=== PATIENT | female | born 1945 | race African-American/Black ===

== ENCOUNTER 2019-08-23 16:38 | Inpatient (IN) | payer MEDICARE, OTHER ==
[~2019-08-23] VITALS: Ht 167.6 cm; Wt 104.6 kg
[~2019-08-23 16:38] MED LIST: ALBU8.5H8 IH; AMLO5TAB9 PO; ASPI-1111 PO; BENA10TA77 PO; FAMO20 PO; FURO40 PO; LEVE500T53 PO; MAGOX PO; OLAN5TAB2 PO; PANT40TA25 PO; TOLT2TAB2 PO
[2019-08-23] MEDS ORDERED: IPRATROPIUM BROMIDE 0.5 MG/2.5 ML NEB SOLUTION NEB ONE ×3 (16:56→17:00)
[2019-08-23] MEDS ORDERED: 0.9% SODIUM CHLORIDE 15 ML NEB SOLUTION NEB ONE (16:56)
[2019-08-23] MEDS ORDERED: ALBUTEROL SULFATE 5 MG/ML 20 ML NEB SOLN [BULK] NEB ONE ×2 (16:56→17:02)
[2019-08-23] MEDS ORDERED: 0.9% SODIUM CHLORIDE 10 ML SYRINGE IVP PRN ×2 (17:00→20:45)
[2019-08-23] MEDS ORDERED: FUROSEMIDE 40 MG/4 ML VIAL IVP ONE (17:00)
[2019-08-23] MEDS ORDERED: MethylPREDNISolone SOD SUCC 125 MG/2 ML VIAL IVP ONE (17:00)
[2019-08-23 17:35] LABS: BASOPHILS % (AUTO) 0.7 % (0.0-2.0); EOSINOPHILS % (AUTO) 0.7 % (1.0-6.0); HEMATOCRIT 37.8 % (36-46); HEMOGLOBIN 11.6 g/dL (12.0-16.0); LYMPHOCYTES # (AUTO) 1.9 K/uL (1.0-4.8); LYMPHOCYTES % (AUTO) 20.4 % (22.0-44.0); MEAN CORPUSCULAR HEMOGLOBIN 25.6 pg (26.0-34.0); MEAN CORPUSCULAR HGB CONC 30.6 G/dL (31.0-37.0); MEAN CORPUSCULAR VOLUME 83 fL (80-100); MONOCYTES # (AUTO) 1.1 K/uL (0.1-1.0); MONOCYTES % (AUTO) 11.2 % (2.0-9.0); NEUTROPHILS # (AUTO) 6.3 K/uL (1.8-7.7); PLATELET COUNT (AUTO) 287 K/uL (150-450); RED BLOOD CELL COUNT(AUTO) 4.53 MIL/uL (4.00-5.20); RED CELL DISTRIBUTION WIDTH 19.4 % (11.5-14.5)
[2019-08-23 17:40] LABS: INR 1.3 (0.9-1.1); PROTHROMBIN TIME 13.1 SEC (9.4-11.6)
[2019-08-23 17:41] LABS: CREATININE 1.72 mg/dL (0.60-1.30); POTASSIUM 3.7 mmol/L (3.5-5.1)
[2019-08-23 17:47] LABS: LACTIC ACID 1.7 mmol/L (0.4-2.0)
[2019-08-23 17:50] LABS: PLATELET MORPHOLOGY COMMENT LARGE PLTS PRESENT
[2019-08-23 18:06] LABS: ALBUMIN 2.7 g/dL (3.4-5.0); BILIRUBIN,TOTAL 0.4 mg/dL (0.1-1.0); TOTAL PROTEIN, SERUM 7.4 g/dL (6.4-8.2)
[2019-08-23 18:37] LABS: ABG A-A DIFF O2 174.5 mmHg (10-20.0); ABG BASE EXCESS 8.8 mmol/L (-2.0-3.0); ABG CARBOXYHEMOGLOBIN 1.1 % (0.0-1.5); ABG HCO3 29.7 mmol/L (22.0-26.0); ABG METHEMOGLOBIN 0.3 % (0.0-1.5); ABG OXYGEN CONTENT 16.4 mL/dL (15.0-23.0); ABG OXYHEMOGLOBIN 94.7 % (94.0-100.0); ABG TOTAL HEMOGLOBIN 12.2 G/dL (12.0-18.0); PO2, ARTERIAL BG 91.3 mmHg (75.0-83.0); SOURCE, BLOOD GAS ARTERIAL; TEMPERATURE, FAHRENHEIT, BG 97.5 FAHREN (96.0-98.6)
[2019-08-23 18:39] LABS: ABG PCO2 95 mmHg (35-45); ABG PH 7.206 (7.35-7.450); O2 DEVICE,BLOOD GAS AEROSOL (ROOM AIR); SITE, BLOOD GAS RT RADIAL
[2019-08-23 18:41] LABS: INFLUENZA TYPE A NEGATIVE FOR TYPE A (NEGATIVE); INFLUENZA TYPE B NEGATIVE FOR TYPE B (NEGATIVE)
[2019-08-23] MEDS ORDERED: RAPID SEQUENCE KIT [RSI] 1 EACH KIT ONE (19:22)
[2019-08-23] MEDS ORDERED: SUCCINYLCHOLINE CHLORIDE 20 MG/ML 10 ML VIAL ONE (19:22)
[2019-08-23] MEDS ORDERED: ETOMIDATE 2 MG/ML 10 ML VIAL IVP ONE (19:30)
[2019-08-23] MEDS ORDERED: SUCCINYLCHOLINE CHLORIDE 20 MG/ML 10 ML VIAL IVP ONE (19:30)
[2019-08-23] MEDS: PROPOFOL 1000 MG/ISO-OSM 100 ML IV PRN ×2 (19:47→23:59)
[2019-08-23] MEDS ORDERED: NOREPINEPHRINE 4 MG/D5%-WATER 250 ML IV PRN ×2 (20:25→22:30)
[2019-08-23 20:38] LABS: APPEARANCE,URINE CLOUDY (CLEAR); GLUCOSE, URINE (UA) NEGATIVE (NEGATIVE); KETONES,URINE NEGATIVE (NEGATIVE); LEUKOCYTE ESTERASE ,URINE NEGATIVE (NEGATIVE); NITRATE,URINE NEGATIVE (NEGATIVE); OCCULT BLOOD,URINE NEGATIVE (NEGATIVE); PROTEIN,URINE TRACE (NEGATIVE)
[2019-08-23] MEDS ORDERED: ACETAMINOPHEN 325 MG TABLET PO PRN (20:45)
[2019-08-23] MEDS ORDERED: LEVOFLOXACIN 500 MG/D5% WATER 100 ML IV ONE (20:45)
[2019-08-23 20:55] LABS: BILIRUBIN,URINE PRELIM. POSITIVE (NEGATIVE)
[2019-08-23 21:00] VITALS: BP 123/63
[2019-08-23 21:10] LABS: BACTERIA,URINE Few /HPF (None Seen); RBC,URINE None Seen /HPF (0-2); SQUAMOUS EPITHELIAL CELL,UR Few /LPF (None Seen); WBC,URINE 0-2 /HPF (0-5)
[2019-08-23 21:25] LABS: ABG A-A DIFF O2 202.1 mmHg (10-20.0); ABG BASE EXCESS -0.4 mmol/L (-2.0-3.0); ABG CARBOXYHEMOGLOBIN 1.5 % (0.0-1.5); ABG METHEMOGLOBIN 0.3 % (0.0-1.5); ABG OXYGEN CONTENT 16.2 mL/dL (15.0-23.0); ABG OXYGEN SATURATION 98.6 % (95.0-98.0); ABG OXYHEMOGLOBIN 96.8 % (94.0-100.0); ABG PCO2 44 mmHg (35-45); ABG PH 7.373 (7.35-7.450); ABG TOTAL HEMOGLOBIN 11.8 G/dL (12.0-18.0); PO2, ARTERIAL BG 107.1 mmHg (75.0-83.0); SOURCE, BLOOD GAS ARTERIAL
[2019-08-23 21:27] LABS: O2 DEVICE,BLOOD GAS VENTILATOR (ROOM AIR); SITE, BLOOD GAS RT RADIAL
[2019-08-23 21:28] LABS: PEEP,BG 5 cm H2O; SPONTANEOUS VT, BG 465 ml; VT, ABG 500 ml
[2019-08-23] MEDS ORDERED: SODIUM CHLORIDE 0.9% 250 ML IV ONE (21:30)
[2019-08-23] MEDS ORDERED: HydrALAZINE HCL 20 MG/ML VIAL IVP PRN (22:30)
[2019-08-24] VITALS: BP 128/56
[2019-08-24] MEDS: MethylPREDNISolone SOD SUCC 125 MG/2 ML VIAL IVP SCH ×4 (01:10→23:15)
[2019-08-24] MEDS: LevETIRAcetam 500 MG TABLET PO SCH ×3 (01:10→20:52)
[2019-08-24] MEDS ORDERED: 0.9% SODIUM CHLORIDE 10 ML SYRINGE IVP PRN (01:15)
[2019-08-24] MEDS ORDERED: OxyCODONE HCL/ACETAMINOPHEN 5-325 MG TABLET PO PRN ×2 (01:15)
[2019-08-24] MEDS ORDERED: MAGNESIUM HYDROXIDE SUSPENSION 30 ML UDCUP PO PRN (01:15)
[2019-08-24] MEDS ORDERED: ACETAMINOPHEN 325 MG TABLET PO PRN (01:15)
[2019-08-24] MEDS ORDERED: ONDANSETRON HCL 4 MG/2 ML VIAL IVP PRN (01:15)
[2019-08-24] MEDS ORDERED: ALBUTEROL SULFATE 2.5 MG/0.5 ML NEB SOLUTION NEB ONE (01:58)
[2019-08-24] MEDS ORDERED: ALBUTEROL SULFATE 2.5 MG/0.5 ML NEB SOLUTION NEB SCH (02:00)
[2019-08-24] MEDS ORDERED: IPRATROPIUM BROMIDE 0.5 MG/2.5 ML NEB SOLUTION NEB SCH (02:00)
[2019-08-24] MEDS: ALBUTEROL SULFATE 2.5 MG/0.5 ML NEB SOLUTION NEB SCH ×4 (02:08→20:08)
[2019-08-24] MEDS: IPRATROPIUM BROMIDE 0.5 MG/2.5 ML NEB SOLUTION NEB SCH ×4 (02:08→20:08)
[2019-08-24] MEDS: DOCUSATE SODIUM 100 MG CAPSULE PO SCH ×3 (02:27→20:52)
[2019-08-24 04:00] VITALS: BP 116/56
[2019-08-24 05:12] LABS: BASOPHILS % (AUTO) 0.6 % (0.0-2.0); EOSINOPHILS % (AUTO) 0 % (1.0-6.0); HEMATOCRIT 34.6 % (36-46); HEMOGLOBIN 10.9 g/dL (12.0-16.0); LYMPHOCYTES # (AUTO) 1.1 K/uL (1.0-4.8); LYMPHOCYTES % (AUTO) 12.2 % (22.0-44.0); MEAN CORPUSCULAR HEMOGLOBIN 25.9 pg (26.0-34.0); MEAN CORPUSCULAR HGB CONC 31.5 G/dL (31.0-37.0); MEAN CORPUSCULAR VOLUME 82 fL (80-100); MONOCYTES # (AUTO) 0.1 K/uL (0.1-1.0); MONOCYTES % (AUTO) 0.9 % (2.0-9.0); PLATELET COUNT (AUTO) 278 K/uL (150-450); RED BLOOD CELL COUNT(AUTO) 4.21 MIL/uL (4.00-5.20); RED CELL DISTRIBUTION WIDTH 18.8 % (11.5-14.5)
[2019-08-24 05:14] LABS: NEUTROPHILS % (AUTO) 86.3 % (40.0-70.0)
[2019-08-24 05:21] LABS: ALBUMIN 2.3 g/dL (3.4-5.0); BILIRUBIN,TOTAL 0.3 mg/dL (0.1-1.0); CREATININE 1.56 mg/dL (0.60-1.30); TOTAL PROTEIN, SERUM 6.7 g/dL (6.4-8.2)
[2019-08-24] MEDS: PROPOFOL 1000 MG/ISO-OSM 100 ML IV PRN ×4 (05:21→19:48)
[2019-08-24 05:31] LABS: PLATELET MORPHOLOGY COMMENT GIANT PLTS PRESENT
[2019-08-24 08:00] VITALS: BP 151/73
[2019-08-24 08:01] LABS: ABG BASE EXCESS 10.4 mmol/L (-2.0-3.0); ABG HCO3 33.2 mmol/L (22.0-26.0); ABG METHEMOGLOBIN 0.3 % (0.0-1.5); ABG OXYGEN CONTENT 16.2 mL/dL (15.0-23.0); ABG OXYGEN SATURATION 95.4 % (95.0-98.0); ABG OXYHEMOGLOBIN 94.2 % (94.0-100.0); ABG PCO2 41 mmHg (35-45); ABG TOTAL HEMOGLOBIN 12.2 G/dL (12.0-18.0); PO2, ARTERIAL BG 63.8 mmHg (75.0-83.0); SOURCE, BLOOD GAS ARTERIAL; TEMPERATURE, FAHRENHEIT, BG 97.4 FAHREN (96.0-98.6)
[2019-08-24 08:14] LABS: O2 DEVICE,BLOOD GAS VENTILATOR (ROOM AIR); SITE, BLOOD GAS LFT RADIAL
[2019-08-24 08:15] LABS: PEEP,BG 5 cm H2O; SPONTANEOUS VT, BG 492 ml; VT, ABG 500 ml
[2019-08-24] MEDS ORDERED: POTASSIUM CHLORIDE 10% 40 MEQ/30 ML LIQUID UDCUP NG ONE (08:15)
[2019-08-24] MEDS ORDERED: FAMOTIDINE 10 MG/ML 2 ML VIAL IVP SCH (09:00)
[2019-08-24] MEDS: AmLODIPine BESYLATE 5 MG TABLET PO SCH (09:04)
[2019-08-24] MEDS: BENAZEPRIL HCL 10 MG TABLET PO SCH (09:04)
[2019-08-24] MEDS: ASPIRIN 81 MG EC TABLET PO SCH (09:04)
[2019-08-24 12:00] VITALS: BP 117/55
[2019-08-24] MEDS: FUROSEMIDE 20 MG/2 ML VIAL IVP SCH (12:59)
[2019-08-24 13:07] LABS: CALCIUM, TOTAL 8.8 mg/dL (8.8-10.5); CREATININE 1.29 mg/dL (0.60-1.30); POTASSIUM 3.8 mmol/L (3.5-5.1)
[2019-08-24 16:00] VITALS: BP 127/64
[2019-08-24] MEDS ORDERED: ETOMIDATE 2 MG/ML 10 ML VIAL IVP ONE (16:27)
[2019-08-24] MEDS ORDERED: VECURONIUM BROMIDE 10 MG/VIAL IVP ONE (16:27)
[2019-08-24 20:00] VITALS: BP 110/55
[2019-08-25] VITALS (7 sets, daily range): BP systolic 97–125; BP diastolic 49–69
[2019-08-25] MEDS: PROPOFOL 1000 MG/ISO-OSM 100 ML IV PRN ×5 (01:33→21:24)
[2019-08-25] MEDS: IPRATROPIUM BROMIDE 0.5 MG/2.5 ML NEB SOLUTION NEB SCH ×4 (01:56→20:05)
[2019-08-25] MEDS: ALBUTEROL SULFATE 2.5 MG/0.5 ML NEB SOLUTION NEB SCH ×4 (01:56→20:05)
[2019-08-25] MEDS ORDERED: SODIUM CHLORIDE 0.9% 250 ML IV ONE (04:23)
[2019-08-25 05:40] LABS: BASOPHILS % (AUTO) 0.2 % (0.0-2.0); EOSINOPHILS % (AUTO) 0 % (1.0-6.0); HEMATOCRIT 35.9 % (36-46); HEMOGLOBIN 11.5 g/dL (12.0-16.0); LYMPHOCYTES # (AUTO) 0.7 K/uL (1.0-4.8); MEAN CORPUSCULAR VOLUME 81 fL (80-100); MONOCYTES # (AUTO) 0.3 K/uL (0.1-1.0); MONOCYTES % (AUTO) 3.6 % (2.0-9.0); NEUTROPHILS # (AUTO) 8.2 K/uL (1.8-7.7); PLATELET COUNT (AUTO) 300 K/uL (150-450); RED BLOOD CELL COUNT(AUTO) 4.41 MIL/uL (4.00-5.20); RED CELL DISTRIBUTION WIDTH 18.9 % (11.5-14.5)
[2019-08-25 05:49] LABS: CALCIUM, TOTAL 8.5 mg/dL (8.8-10.5); CREATININE 1.5 mg/dL (0.60-1.30); POTASSIUM 3.7 mmol/L (3.5-5.1)
[2019-08-25 06:01] LABS: NEUTROPHILS % (AUTO) 88.2 % (40.0-70.0); PLATELET MORPHOLOGY COMMENT GIANT PLTS PRESENT
[2019-08-25] MEDS: MethylPREDNISolone SOD SUCC 125 MG/2 ML VIAL IVP SCH ×3 (09:00→23:23)
[2019-08-25] MEDS ORDERED: DEXTROSE 5%-WATER 250 ML IV ONE (09:00)
[2019-08-25] MEDS: BENAZEPRIL HCL 10 MG TABLET PO SCH (09:03)
[2019-08-25] MEDS: FUROSEMIDE 20 MG/2 ML VIAL IVP SCH (09:03)
[2019-08-25] MEDS: AmLODIPine BESYLATE 5 MG TABLET PO SCH (09:03)
[2019-08-25] MEDS: LevETIRAcetam 500 MG TABLET PO SCH ×2 (09:03→20:36)
[2019-08-25] MEDS: ASPIRIN 81 MG EC TABLET PO SCH (09:03)
[2019-08-25] MEDS: DOCUSATE SODIUM 100 MG CAPSULE PO SCH ×2 (09:03→20:35)
[2019-08-25 10:36] LABS: ABG A-A DIFF O2 219.9 mmHg (10-20.0); ABG BASE EXCESS 8.2 mmol/L (-2.0-3.0); ABG HCO3 31.5 mmol/L (22.0-26.0); ABG METHEMOGLOBIN 0.3 % (0.0-1.5); ABG OXYGEN SATURATION 94.5 % (95.0-98.0); ABG OXYHEMOGLOBIN 93.3 % (94.0-100.0); ABG PCO2 36 mmHg (35-45); ABG PH 7.544 (7.35-7.450); ABG TOTAL HEMOGLOBIN 12.2 G/dL (12.0-18.0); PO2, ARTERIAL BG 60.8 mmHg (75.0-83.0); SOURCE, BLOOD GAS ARTERIAL; TEMPERATURE, FAHRENHEIT, BG 96.6 FAHREN (96.0-98.6)
[2019-08-25 10:37] LABS: O2 DEVICE,BLOOD GAS VENTILATOR (ROOM AIR); PEEP,BG 5 cm H2O; SITE, BLOOD GAS LFT RADIAL; VT, ABG 500 ml
[2019-08-26] VITALS (9 sets, daily range): BP systolic 13–133; BP diastolic 49–64
[2019-08-26] MEDS: IPRATROPIUM BROMIDE 0.5 MG/2.5 ML NEB SOLUTION NEB SCH ×4 (01:39→19:10)
[2019-08-26] MEDS: ALBUTEROL SULFATE 2.5 MG/0.5 ML NEB SOLUTION NEB SCH ×4 (01:39→19:10)
[2019-08-26] MEDS: PROPOFOL 1000 MG/ISO-OSM 100 ML IV PRN ×3 (03:36→18:31)
[2019-08-26] MEDS ORDERED: SODIUM CHLORIDE 0.9% 250 ML IV ONE (04:59)
[2019-08-26 05:11] LABS: HEMATOCRIT 36.5 % (36-46); HEMOGLOBIN 11.3 g/dL (12.0-16.0); MEAN CORPUSCULAR HEMOGLOBIN 25.1 pg (26.0-34.0); MEAN CORPUSCULAR VOLUME 81 fL (80-100); PLATELET COUNT (AUTO) 307 K/uL (150-450); RED CELL DISTRIBUTION WIDTH 18.5 % (11.5-14.5)
[2019-08-26 05:24] LABS: CALCIUM, TOTAL 8.6 mg/dL (8.8-10.5); CREATININE 1.25 mg/dL (0.60-1.30); POTASSIUM 3.6 mmol/L (3.5-5.1)
[2019-08-26] MEDS: FUROSEMIDE 20 MG/2 ML VIAL IVP SCH (08:27)
[2019-08-26] MEDS: ASPIRIN 81 MG EC TABLET PO SCH (08:27)
[2019-08-26] MEDS: MethylPREDNISolone SOD SUCC 125 MG/2 ML VIAL IVP SCH ×3 (08:27→23:05)
[2019-08-26] MEDS: DOCUSATE SODIUM 100 MG CAPSULE PO SCH ×2 (08:27→20:32)
[2019-08-26] MEDS: LevETIRAcetam 500 MG TABLET PO SCH ×2 (08:28→20:32)
[2019-08-26] MEDS: AmLODIPine BESYLATE 5 MG TABLET PO SCH (08:28)
[2019-08-26] MEDS: BENAZEPRIL HCL 10 MG TABLET PO SCH (08:28)
[2019-08-26 08:41] LABS: BAND NEUTROPHILS % (MANUAL) 4 % (0-5); CORRECTED WHITE BLOOD COUNT 7.4 K/uL (4.5-11.0); LYMPHOCYTES % (MANUAL) 7 % (22-44); MONOCYTES % (MANUAL) 2 % (2-9); REACTIVE LYMPHOCYTES 1 % (0-0); SEGMENTED NEUTROPHILS % 86 % (40-70)
[2019-08-26 08:52] LABS: ABG A-A DIFF O2 219.2 mmHg (10-20.0); ABG BASE EXCESS 5.8 mmol/L (-2.0-3.0); ABG CARBOXYHEMOGLOBIN 0.8 % (0.0-1.5); ABG HCO3 29.4 mmol/L (22.0-26.0); ABG METHEMOGLOBIN 0.3 % (0.0-1.5); ABG OXYGEN CONTENT 15.2 mL/dL (15.0-23.0); ABG OXYGEN SATURATION 92.3 % (95.0-98.0); ABG OXYHEMOGLOBIN 91.3 % (94.0-100.0); ABG PCO2 36 mmHg (35-45); ABG PH 7.523 (7.35-7.450); ABG TOTAL HEMOGLOBIN 11.8 G/dL (12.0-18.0); PO2, ARTERIAL BG 61.9 mmHg (75.0-83.0); SOURCE, BLOOD GAS ARTERIAL; TEMPERATURE, FAHRENHEIT, BG 97.5 FAHREN (96.0-98.6)
[2019-08-26 08:53] LABS: O2 DEVICE,BLOOD GAS VENTILATOR (ROOM AIR); PEEP,BG 5 cm H2O; SITE, BLOOD GAS RT RADIAL; VT, ABG 500 ml
[2019-08-27] VITALS (8 sets, daily range): BP systolic 97–133; BP diastolic 39–55
[2019-08-27] MEDS: IPRATROPIUM BROMIDE 0.5 MG/2.5 ML NEB SOLUTION NEB SCH ×4 (01:26→19:17)
[2019-08-27] MEDS: ALBUTEROL SULFATE 2.5 MG/0.5 ML NEB SOLUTION NEB SCH ×4 (01:26→19:17)
[2019-08-27] MEDS: PROPOFOL 1000 MG/ISO-OSM 100 ML IV PRN ×3 (02:22→13:35)
[2019-08-27 05:04] LABS: BASOPHILS % (AUTO) 0.3 % (0.0-2.0); EOSINOPHILS % (AUTO) 0 % (1.0-6.0); HEMATOCRIT 36.8 % (36-46); HEMOGLOBIN 11.3 g/dL (12.0-16.0); LYMPHOCYTES # (AUTO) 0.5 K/uL (1.0-4.8); LYMPHOCYTES % (AUTO) 5.9 % (22.0-44.0); MEAN CORPUSCULAR HEMOGLOBIN 25.2 pg (26.0-34.0); MEAN CORPUSCULAR HGB CONC 30.7 G/dL (31.0-37.0); MEAN CORPUSCULAR VOLUME 82 fL (80-100); MONOCYTES # (AUTO) 0.4 K/uL (0.1-1.0); MONOCYTES % (AUTO) 4.3 % (2.0-9.0); NEUTROPHILS # (AUTO) 7.5 K/uL (1.8-7.7); PLATELET COUNT (AUTO) 288 K/uL (150-450); RED CELL DISTRIBUTION WIDTH 18.8 % (11.5-14.5)
[2019-08-27 05:26] LABS: NEUTROPHILS % (AUTO) 89.5 % (40.0-70.0)
[2019-08-27 05:32] LABS: CALCIUM, TOTAL 8.7 mg/dL (8.8-10.5); CREATININE 1.09 mg/dL (0.60-1.30); POTASSIUM 3.7 mmol/L (3.5-5.1)
[2019-08-27] MEDS: MethylPREDNISolone SOD SUCC 125 MG/2 ML VIAL IVP SCH ×2 (08:52→15:58)
[2019-08-27] MEDS: ASPIRIN 81 MG EC TABLET PO SCH (08:52)
[2019-08-27] MEDS: AmLODIPine BESYLATE 5 MG TABLET PO SCH (08:53)
[2019-08-27] MEDS: LevETIRAcetam 500 MG TABLET PO SCH ×2 (08:54→21:28)
[2019-08-27] MEDS: DOCUSATE SODIUM 100 MG CAPSULE PO SCH ×2 (08:54→21:27)
[2019-08-27] MEDS: BENAZEPRIL HCL 10 MG TABLET PO SCH (08:54)
[2019-08-27] MEDS: FUROSEMIDE 20 MG/2 ML VIAL IVP SCH (08:54)
[2019-08-27 16:35] LABS: ABG A-A DIFF O2 152.8 mmHg (10-20.0); ABG BASE EXCESS 13.9 mmol/L (-2.0-3.0); ABG CARBOXYHEMOGLOBIN 1.4 % (0.0-1.5); ABG HCO3 35.2 mmol/L (22.0-26.0); ABG METHEMOGLOBIN 0.3 % (0.0-1.5); ABG OXYGEN CONTENT 16.3 mL/dL (15.0-23.0); ABG OXYHEMOGLOBIN 90.4 % (94.0-100.0); ABG PCO2 62 mmHg (35-45); ABG PH 7.414 (7.35-7.450); ABG TOTAL HEMOGLOBIN 12.8 G/dL (12.0-18.0); PO2, ARTERIAL BG 61.8 mmHg (75.0-83.0); SOURCE, BLOOD GAS ARTERIAL; TEMPERATURE, FAHRENHEIT, BG 98.3 FAHREN (96.0-98.6)
[2019-08-27 16:36] LABS: O2 DEVICE,BLOOD GAS VENTILATOR (ROOM AIR); SITE, BLOOD GAS RT RADIAL
[2019-08-27 16:37] LABS: SPONTANEOUS VT, BG 342 ml
[2019-08-27 16:39] LABS: PRESSURE SUPPORT, BG 8 cm H2O
[2019-08-27 16:40] LABS: PEEP,BG 0 cm H2O; VENT MODE, BG CPAP (ROOM AIR)
[2019-08-28] VITALS: BP 124/50
[2019-08-28] MEDS: MethylPREDNISolone SOD SUCC 125 MG/2 ML VIAL IVP SCH ×2 (00:24→08:37)
[2019-08-28] MEDS: IPRATROPIUM BROMIDE 0.5 MG/2.5 ML NEB SOLUTION NEB SCH ×4 (01:50→20:37)
[2019-08-28] MEDS: ALBUTEROL SULFATE 2.5 MG/0.5 ML NEB SOLUTION NEB SCH ×4 (01:50→20:38)
[2019-08-28 04:00] VITALS: BP 114/40
[2019-08-28 04:53] LABS: BASOPHILS % (AUTO) 0.4 % (0.0-2.0); EOSINOPHILS % (AUTO) 0.5 % (1.0-6.0); HEMATOCRIT 38.2 % (36-46); HEMOGLOBIN 11.9 g/dL (12.0-16.0); LYMPHOCYTES # (AUTO) 1.1 K/uL (1.0-4.8); LYMPHOCYTES % (AUTO) 13.6 % (22.0-44.0); MEAN CORPUSCULAR HEMOGLOBIN 25.3 pg (26.0-34.0); MEAN CORPUSCULAR HGB CONC 31.1 G/dL (31.0-37.0); MEAN CORPUSCULAR VOLUME 82 fL (80-100); MONOCYTES # (AUTO) 0.3 K/uL (0.1-1.0); MONOCYTES % (AUTO) 3.2 % (2.0-9.0); NEUTROPHILS # (AUTO) 6.8 K/uL (1.8-7.7); NEUTROPHILS % (AUTO) 82.3 % (40.0-70.0); PLATELET COUNT (AUTO) 289 K/uL (150-450); RED BLOOD CELL COUNT(AUTO) 4.69 MIL/uL (4.00-5.20); RED CELL DISTRIBUTION WIDTH 19.5 % (11.5-14.5)
[2019-08-28 05:05] LABS: ANION GAP 0 mmol/L (8-16); CARBON DIOXIDE 38 mmol/L (22-29); CHLORIDE 105 mmol/L (98-107); CREATININE 1.05 mg/dL (0.60-1.30); GLUCOSE,RANDOM 145 mg/dL (70-110); POTASSIUM 4.1 mmol/L (3.5-5.1); SODIUM SERUM 143 mmol/L (136-145); UREA NITROGEN, BLOOD 49 mg/dL (7-18)
[2019-08-28 05:06] LABS: GLOMERULAR FILTR. RATE CALC > 60 mL/min (>60)
[2019-08-28 08:00] VITALS: BP 123/44
[2019-08-28] MEDS: FUROSEMIDE 20 MG/2 ML VIAL IVP SCH (08:37)
[2019-08-28] MEDS: DOCUSATE SODIUM 100 MG CAPSULE PO SCH ×2 (10:15→20:49)
[2019-08-28] MEDS: LevETIRAcetam 500 MG TABLET PO SCH ×2 (10:15→20:49)
[2019-08-28] MEDS: BENAZEPRIL HCL 10 MG TABLET PO SCH (10:15)
[2019-08-28] MEDS: ASPIRIN 81 MG EC TABLET PO SCH (10:16)
[2019-08-28] MEDS: AmLODIPine BESYLATE 5 MG TABLET PO SCH (10:16)
[2019-08-28 12:00] VITALS: BP 109/37
[2019-08-28] MEDS: PredniSONE 20 MG TABLET PO SCH (13:16)
[2019-08-28 15:00] VITALS: BP 110/64
[2019-08-28 20:16] VITALS: BP 120/50
[2019-08-29 00:43] VITALS: BP 131/50
[2019-08-29] MEDS: IPRATROPIUM BROMIDE 0.5 MG/2.5 ML NEB SOLUTION NEB SCH ×2 (02:56→08:00)
[2019-08-29] MEDS: ALBUTEROL SULFATE 2.5 MG/0.5 ML NEB SOLUTION NEB SCH ×2 (02:56→08:00)
[2019-08-29 04:43] VITALS: BP 120/51
[2019-08-29 07:14] VITALS: BP 114/52
[2019-08-29] MEDS: FUROSEMIDE 20 MG/2 ML VIAL IVP SCH (09:40)
[2019-08-29] MEDS: DOCUSATE SODIUM 100 MG CAPSULE PO SCH (09:40)
[2019-08-29] MEDS: ASPIRIN 81 MG EC TABLET PO SCH (09:41)
[2019-08-29] MEDS: BENAZEPRIL HCL 10 MG TABLET PO SCH (09:42)
[2019-08-29] MEDS: LevETIRAcetam 500 MG TABLET PO SCH (09:42)
[2019-08-29] MEDS: AmLODIPine BESYLATE 5 MG TABLET PO SCH (09:42)
[2019-08-29] MEDS: PredniSONE 20 MG TABLET PO SCH (10:01)
[2019-08-29 11:13] VITALS: BP 104/49
== END 2019-08-29 13:40 | DRG 207 ==
LOC: EMS 16:42 → ICU 20:00 → ICUN 08-27 17:45 → 5N 08-28 14:30
PROVIDERS: ADMIT Internal Medicine; ATTEND Internal Medicine
PROC: 5A1955Z Respiratory Ventilation, Greater than 96 Consecutive Hours (ICD-10-PCS; principal; 2019-08-23)
PROC: 0BH17EZ Insertion of Endotracheal Airway into Trachea, Via Natural or Artificial Opening (ICD-10-PCS; 2019-08-23)
DX: J96.02 Acute respiratory failure with hypercapnia (principal); I50.31 Acute diastolic (congestive) heart failure; J44.1 Chronic obstructive pulmonary disease with (acute) exacerbation; E87.2 Acidosis; N17.9 Acute kidney failure, unspecified; Z99.11 Dependence on respirator [ventilator] status; I11.0 Hypertensive heart disease with heart failure; F20.9 Schizophrenia, unspecified; F17.210 Nicotine dependence, cigarettes, uncomplicated; F31.9 Bipolar disorder, unspecified; G40.909 Epilepsy, unspecified, not intractable, without status epilepticus; Z86.73 Personal history of transient ischemic attack (TIA), and cerebral infarction without residual deficits; Z82.49 Family history of ischemic heart disease and other diseases of the circulatory system; Z88.2 Allergy status to sulfonamides; Z90.710 Acquired absence of both cervix and uterus; Z82.3 Family history of stroke
CPT/HCPCS: 36600; 71250; 82805; 83605; 87040; 87070; 87081; 87205; 87804; 92507; 92523; 92610; 93005; 93306; 94002; 94003; 94640; 94644; 94660; 97162; 97166; 97530; 97535; 99291; G0378; J0330; J1940; J1956; J2704; J2930; J3490; J7050; J7060

== ENCOUNTER 2019-08-29 13:45 | Inpatient (IN) | payer MEDICARE, OTHER ==
[~2019-08-29] VITALS: Ht 167.6 cm; Wt 106.6 kg
[2019-08-29 15:00] VITALS: BP 109/48
[2019-08-29] MEDS ORDERED: ACETAMINOPHEN 325 MG TABLET PO PRN (15:00)
[2019-08-29] MEDS ORDERED: ACETAMINOPHEN 500 MG TABLET PO PRN (15:00)
[2019-08-29] MEDS ORDERED: OLANZapine 5 MG TABLET PO SCH (16:00)
[2019-08-29] MEDS: DOCUSATE SODIUM 100 MG CAPSULE PO SCH ×2 (17:22→21:13)
[2019-08-29 17:50] LABS: GLUCOMETER DEV NAME(LOC) 2WR.2; GLUCOSE,POINT OF CARE 126 MG/DL (70-110)
[2019-08-29] MEDS ORDERED: DOCUSATE SODIUM 100 MG/10 ML LIQUID UDCUP PO SCH (21:00)
[2019-08-29] MEDS: MAGNESIUM OXIDE 400 MG TABLET PO SCH (21:11)
[2019-08-29] MEDS: OXYGEN THERAPY IH SCH (21:11)
[2019-08-29] MEDS: LevETIRAcetam 500 MG TABLET PO SCH (21:12)
[2019-08-29] MEDS: OLANZapine 5 MG TABLET PO SCH (21:14)
[2019-08-29 21:40] LABS: GLUCOMETER DEV NAME(LOC) 2WR.1C; GLUCOSE,POINT OF CARE 132 MG/DL (70-110)
[2019-08-29] MEDS: ALBUTEROL SULFATE 2.5 MG/0.5 ML NEB SOLUTION NEB SCH (21:45)
[2019-08-29] MEDS: IPRATROPIUM BROMIDE 0.5 MG/2.5 ML NEB SOLUTION NEB PRN (21:46)
[2019-08-29] MEDS ORDERED: PNEUMOCOCCAL VACCINE POLYVALENT 0.5 ML VIAL [PPSV23] IM ONE (22:30)
[2019-08-29] MEDS ORDERED: INFLUENZA VIRUS VACCINE QVS 2019-20 (3YR+)/PF 60 MCG/0.5 ML SYRINGE IM ONE (22:30)
[2019-08-30] VITALS: BP 131/48
[2019-08-30] MEDS: 0.9% SODIUM CHLORIDE 10 ML SYRINGE IVP SCH ×2 (00:08→08:52)
[2019-08-30] MEDS: ALBUTEROL SULFATE 2.5 MG/0.5 ML NEB SOLUTION NEB SCH ×4 (02:44→20:27)
[2019-08-30] MEDS: IPRATROPIUM BROMIDE 0.5 MG/2.5 ML NEB SOLUTION NEB PRN ×2 (02:44→20:27)
[2019-08-30 06:15] LABS: GLUCOMETER DEV NAME(LOC) 2WR.1C; GLUCOSE,POINT OF CARE 84 MG/DL (70-110)
[2019-08-30 06:29] LABS: BASOPHILS % (AUTO) 0.9 % (0.0-2.0); HEMATOCRIT 40.4 % (36-46); HEMOGLOBIN 12.4 g/dL (12.0-16.0); LYMPHOCYTES % (AUTO) 28.4 % (22.0-44.0); MEAN CORPUSCULAR HEMOGLOBIN 25.5 pg (26.0-34.0); MEAN CORPUSCULAR HGB CONC 30.7 G/dL (31.0-37.0); MEAN CORPUSCULAR VOLUME 83 fL (80-100); MONOCYTES # (AUTO) 0.8 K/uL (0.1-1.0); MONOCYTES % (AUTO) 10.8 % (2.0-9.0); NEUTROPHILS # (AUTO) 4.1 K/uL (1.8-7.7); NEUTROPHILS % (AUTO) 57.9 % (40.0-70.0); PLATELET COUNT (AUTO) 292 K/uL (150-450); RED BLOOD CELL COUNT(AUTO) 4.86 MIL/uL (4.00-5.20); RED CELL DISTRIBUTION WIDTH 18.8 % (11.5-14.5)
[2019-08-30 06:44] LABS: ALANINE AMINOTRANSFERASE 40 U/L (12-78); ALBUMIN 2.4 g/dL (3.4-5.0); ALKALINE PHOSPHATASE 104 U/L (46-116); ANION GAP 0 mmol/L (8-16); ASPARTATE AMINOTRANSFERASE 21 U/L (15-37); BILIRUBIN,TOTAL 0.4 mg/dL (0.1-1.0); CALCIUM, TOTAL 8.8 mg/dL (8.8-10.5); CARBON DIOXIDE 38 mmol/L (22-29); CHLORIDE 104 mmol/L (98-107); CREATININE 1.05 mg/dL (0.60-1.30); GLUCOSE,RANDOM 80 mg/dL (70-110); POTASSIUM 4.6 mmol/L (3.5-5.1); SODIUM SERUM 142 mmol/L (136-145); TOTAL PROTEIN, SERUM 6.3 g/dL (6.4-8.2); UREA NITROGEN, BLOOD 53 mg/dL (7-18)
[2019-08-30 06:48] LABS: GLOMERULAR FILTR. RATE CALC > 60 mL/min (>60)
[2019-08-30 07:15] VITALS: BP 107/50
[2019-08-30] MEDS: ASPIRIN 81 MG EC TABLET PO SCH (07:59)
[2019-08-30] MEDS: PredniSONE 10 MG TABLET PO SCH (08:12)
[2019-08-30] MEDS: MAGNESIUM OXIDE 400 MG TABLET PO SCH ×2 (08:12→21:23)
[2019-08-30] MEDS: DOCUSATE SODIUM 100 MG CAPSULE PO SCH ×2 (08:12→21:26)
[2019-08-30] MEDS: AmLODIPine BESYLATE 5 MG TABLET PO SCH (08:12)
[2019-08-30] MEDS: LevETIRAcetam 500 MG TABLET PO SCH ×2 (08:12→21:23)
[2019-08-30] MEDS: BENAZEPRIL HCL 10 MG TABLET PO SCH (08:13)
[2019-08-30] MEDS: FUROSEMIDE 20 MG TABLET PO SCH ×2 (08:13→10:16)
[2019-08-30] MEDS: FAMOTIDINE 20 MG TABLET PO SCH (08:13)
[2019-08-30] MEDS: OXYGEN THERAPY IH SCH ×2 (08:15→21:31)
[2019-08-30 16:32] VITALS: BP 119/53
[2019-08-30 17:27] LABS: GLUCOMETER DEV NAME(LOC) 2WR.2; GLUCOSE,POINT OF CARE 132 MG/DL (70-110)
[2019-08-30 21:16] LABS: GLUCOMETER DEV NAME(LOC) 2WR.2; GLUCOSE,POINT OF CARE 109 MG/DL (70-110)
[2019-08-30] MEDS: OLANZapine 5 MG TABLET PO SCH (21:21)
[2019-08-30 23:56] LABS: GLUCOMETER DEV NAME(LOC) 2WR.1C; GLUCOSE,POINT OF CARE 109 MG/DL (70-110)
[2019-08-31] MEDS: ALBUTEROL SULFATE 2.5 MG/0.5 ML NEB SOLUTION NEB SCH ×4 (02:00→20:48)
[2019-08-31 05:00] VITALS: BP 139/57
[2019-08-31 06:40] LABS: GLUCOMETER DEV NAME(LOC) 2WR.2; GLUCOSE,POINT OF CARE 83 MG/DL (70-110)
[2019-08-31 07:25] VITALS: BP 117/58
[2019-08-31] MEDS: ASPIRIN 81 MG EC TABLET PO SCH (08:30)
[2019-08-31] MEDS: LevETIRAcetam 500 MG TABLET PO SCH ×2 (08:30→20:44)
[2019-08-31] MEDS: DOCUSATE SODIUM 100 MG CAPSULE PO SCH ×2 (08:30→20:46)
[2019-08-31] MEDS: OXYGEN THERAPY IH SCH ×2 (08:30→21:04)
[2019-08-31] MEDS: PredniSONE 10 MG TABLET PO SCH (08:30)
[2019-08-31] MEDS: FAMOTIDINE 20 MG TABLET PO SCH (08:31)
[2019-08-31] MEDS: BENAZEPRIL HCL 10 MG TABLET PO SCH (08:31)
[2019-08-31] MEDS: AmLODIPine BESYLATE 5 MG TABLET PO SCH (08:31)
[2019-08-31] MEDS: MAGNESIUM OXIDE 400 MG TABLET PO SCH ×2 (08:31→20:43)
[2019-08-31] MEDS: IPRATROPIUM BROMIDE 0.5 MG/2.5 ML NEB SOLUTION NEB PRN (08:44)
[2019-08-31] MEDS: FUROSEMIDE 20 MG TABLET PO SCH (09:00)
[2019-08-31 15:55] VITALS: BP 113/50
[2019-08-31] MEDS: OLANZapine 5 MG TABLET PO SCH (20:41)
[2019-08-31] MEDS ORDERED: 0.9% SODIUM CHLORIDE 5 ML NEB SOLUTION NEB ONE (20:45)
[2019-09-01] MEDS ORDERED: 0.9% SODIUM CHLORIDE 5 ML NEB SOLUTION NEB ONE (02:25)
[2019-09-01] MEDS: ALBUTEROL SULFATE 2.5 MG/0.5 ML NEB SOLUTION NEB SCH ×4 (02:29→20:21)
[2019-09-01 03:00] VITALS: BP 149/53
[2019-09-01 08:13] VITALS: BP 135/62
[2019-09-01] MEDS: PredniSONE 10 MG TABLET PO SCH (08:43)
[2019-09-01] MEDS: FAMOTIDINE 20 MG TABLET PO SCH (08:44)
[2019-09-01] MEDS: BENAZEPRIL HCL 10 MG TABLET PO SCH (08:44)
[2019-09-01] MEDS: MAGNESIUM OXIDE 400 MG TABLET PO SCH ×2 (08:44→20:07)
[2019-09-01] MEDS: ASPIRIN 81 MG EC TABLET PO SCH (08:44)
[2019-09-01] MEDS: AmLODIPine BESYLATE 5 MG TABLET PO SCH (08:45)
[2019-09-01] MEDS: IPRATROPIUM BROMIDE 0.5 MG/2.5 ML NEB SOLUTION NEB PRN ×3 (08:48→20:22)
[2019-09-01] MEDS: OXYGEN THERAPY IH SCH ×2 (08:48→20:06)
[2019-09-01] MEDS: DOCUSATE SODIUM 100 MG CAPSULE PO SCH ×2 (08:49→20:07)
[2019-09-01] MEDS: LevETIRAcetam 500 MG TABLET PO SCH ×2 (08:49→20:07)
[2019-09-01] MEDS: FUROSEMIDE 20 MG TABLET PO SCH (09:00)
[2019-09-01 15:45] VITALS: BP 116/61
[2019-09-01] MEDS: OLANZapine 5 MG TABLET PO SCH (20:07)
[2019-09-01 23:07] VITALS: BP 151/69
[2019-09-02] MEDS: ALBUTEROL SULFATE 2.5 MG/0.5 ML NEB SOLUTION NEB SCH ×4 (02:00→21:30)
[2019-09-02 07:01] VITALS: BP 125/52
[2019-09-02] MEDS: FAMOTIDINE 20 MG TABLET PO SCH (07:32)
[2019-09-02] MEDS: ASPIRIN 81 MG EC TABLET PO SCH (07:33)
[2019-09-02] MEDS: LevETIRAcetam 500 MG TABLET PO SCH ×2 (07:33→20:17)
[2019-09-02] MEDS: MAGNESIUM OXIDE 400 MG TABLET PO SCH ×2 (07:33→20:17)
[2019-09-02] MEDS: AmLODIPine BESYLATE 5 MG TABLET PO SCH (07:33)
[2019-09-02] MEDS: DOCUSATE SODIUM 100 MG CAPSULE PO SCH ×3 (07:33→20:17)
[2019-09-02] MEDS: PredniSONE 20 MG TABLET PO SCH (07:33)
[2019-09-02] MEDS: BENAZEPRIL HCL 10 MG TABLET PO SCH (07:33)
[2019-09-02] MEDS: OXYGEN THERAPY IH SCH ×2 (07:34→20:16)
[2019-09-02] MEDS: IPRATROPIUM BROMIDE 0.5 MG/2.5 ML NEB SOLUTION NEB PRN ×3 (08:36→21:30)
[2019-09-02] MEDS: FUROSEMIDE 20 MG TABLET PO SCH (09:00)
[2019-09-02 09:38] LABS: ANION GAP 1 mmol/L (8-16); CALCIUM, TOTAL 9.1 mg/dL (8.8-10.5); CARBON DIOXIDE 37 mmol/L (22-29); CHLORIDE 103 mmol/L (98-107); CREATININE 0.89 mg/dL (0.60-1.30); GLUCOSE,RANDOM 114 mg/dL (70-110); POTASSIUM 4.6 mmol/L (3.5-5.1); SODIUM SERUM 141 mmol/L (136-145); UREA NITROGEN, BLOOD 23 mg/dL (7-18)
[2019-09-02 09:41] LABS: GLOMERULAR FILTR. RATE CALC > 60 mL/min (>60)
[2019-09-02 15:45] VITALS: BP 114/55
[2019-09-02] MEDS: OLANZapine 5 MG TABLET PO SCH (20:17)
[2019-09-03] VITALS: BP 117/55
[2019-09-03] MEDS: ALBUTEROL SULFATE 2.5 MG/0.5 ML NEB SOLUTION NEB SCH ×4 (02:00→21:21)
[2019-09-03 07:28] VITALS: BP 137/63
[2019-09-03] MEDS: MAGNESIUM OXIDE 400 MG TABLET PO SCH ×2 (08:11→22:04)
[2019-09-03] MEDS: BENAZEPRIL HCL 10 MG TABLET PO SCH (08:11)
[2019-09-03] MEDS: AmLODIPine BESYLATE 5 MG TABLET PO SCH (08:11)
[2019-09-03] MEDS: ASPIRIN 81 MG EC TABLET PO SCH (08:11)
[2019-09-03] MEDS: FUROSEMIDE 20 MG TABLET PO SCH (08:11)
[2019-09-03] MEDS: FAMOTIDINE 20 MG TABLET PO SCH (08:11)
[2019-09-03] MEDS: PredniSONE 20 MG TABLET PO SCH (08:12)
[2019-09-03] MEDS: OXYGEN THERAPY IH SCH ×2 (08:12→22:03)
[2019-09-03] MEDS: LevETIRAcetam 500 MG TABLET PO SCH (08:12)
[2019-09-03] MEDS: DOCUSATE SODIUM 100 MG CAPSULE PO SCH ×3 (08:12→22:04)
[2019-09-03] MEDS ORDERED: 0.9% SODIUM CHLORIDE 5 ML NEB SOLUTION NEB ONE (08:34)
[2019-09-03 15:45] VITALS: BP 138/60
[2019-09-03] MEDS: BENZONATATE 100 MG CAPSULE PO SCH (17:39)
[2019-09-03] MEDS: FLUTICASONE/VILANTEROL 200-25 MCG/INH INHALER [14] IH SCH (17:39)
[2019-09-03] MEDS: TIOTROPIUM BROMIDE 18 MCG/INH HANDIHALER [5] IH SCH (17:40)
[2019-09-03] MEDS: IPRATROPIUM BROMIDE 0.5 MG/2.5 ML NEB SOLUTION NEB PRN (21:21)
[2019-09-03] MEDS: OLANZapine 5 MG TABLET PO SCH (22:03)
[2019-09-03] MEDS: DIVALPROEX SODIUM 500 MG DR TABLET PO SCH (22:03)
[2019-09-03] MEDS: MELATONIN 3 MG TABLET PO PRN (22:05)
[2019-09-04] MEDS: BENZONATATE 100 MG CAPSULE PO SCH ×5 (00:55→23:50)
[2019-09-04] MEDS: ALBUTEROL SULFATE 2.5 MG/0.5 ML NEB SOLUTION NEB SCH ×4 (02:00→20:36)
[2019-09-04 05:00] VITALS: BP 140/77
[2019-09-04 07:30] VITALS: BP 142/68
[2019-09-04] MEDS: TIOTROPIUM BROMIDE 18 MCG/INH HANDIHALER [5] IH SCH (09:22)
[2019-09-04] MEDS: FLUTICASONE/VILANTEROL 200-25 MCG/INH INHALER [14] IH SCH (09:22)
[2019-09-04] MEDS: FUROSEMIDE 20 MG TABLET PO SCH (09:27)
[2019-09-04] MEDS: ASPIRIN 81 MG EC TABLET PO SCH (09:27)
[2019-09-04] MEDS: AmLODIPine BESYLATE 5 MG TABLET PO SCH (09:27)
[2019-09-04] MEDS: DIVALPROEX SODIUM 500 MG DR TABLET PO SCH ×2 (09:27→20:12)
[2019-09-04] MEDS: FAMOTIDINE 20 MG TABLET PO SCH (09:28)
[2019-09-04] MEDS: DOCUSATE SODIUM 100 MG CAPSULE PO SCH ×2 (09:28→20:12)
[2019-09-04] MEDS: MAGNESIUM OXIDE 400 MG TABLET PO SCH ×2 (09:28→20:12)
[2019-09-04] MEDS: BENAZEPRIL HCL 10 MG TABLET PO SCH (09:28)
[2019-09-04] MEDS: PredniSONE 20 MG TABLET PO SCH (09:28)
[2019-09-04] MEDS: OXYGEN THERAPY IH SCH ×2 (09:29→20:11)
[2019-09-04] MEDS ORDERED: 0.9% SODIUM CHLORIDE 5 ML NEB SOLUTION NEB ONE (15:07)
[2019-09-04 15:35] VITALS: BP 110/52
[2019-09-04] MEDS: OLANZapine 5 MG TABLET PO SCH (20:13)
[2019-09-04] MEDS: MELATONIN 3 MG TABLET PO PRN (20:15)
[2019-09-04] MEDS: IPRATROPIUM BROMIDE 0.5 MG/2.5 ML NEB SOLUTION NEB PRN (20:36)
[2019-09-04 23:51] VITALS: BP 138/51
[2019-09-05] MEDS: IPRATROPIUM BROMIDE 0.5 MG/2.5 ML NEB SOLUTION NEB PRN ×4 (03:24→20:39)
[2019-09-05] MEDS: ALBUTEROL SULFATE 2.5 MG/0.5 ML NEB SOLUTION NEB SCH ×4 (03:24→20:39)
[2019-09-05 07:30] VITALS: BP 130/71
[2019-09-05] MEDS: FLUTICASONE/VILANTEROL 200-25 MCG/INH INHALER [14] IH SCH (08:16)
[2019-09-05] MEDS: TIOTROPIUM BROMIDE 18 MCG/INH HANDIHALER [5] IH SCH (08:16)
[2019-09-05] MEDS: OXYGEN THERAPY IH SCH ×2 (08:18→20:04)
[2019-09-05] MEDS: ASPIRIN 81 MG EC TABLET PO SCH (08:19)
[2019-09-05] MEDS: FAMOTIDINE 20 MG TABLET PO SCH (08:28)
[2019-09-05] MEDS: BENZONATATE 100 MG CAPSULE PO SCH ×3 (08:28→23:58)
[2019-09-05] MEDS: MAGNESIUM OXIDE 400 MG TABLET PO SCH ×2 (08:28→20:05)
[2019-09-05] MEDS: FUROSEMIDE 20 MG TABLET PO SCH (08:28)
[2019-09-05] MEDS: BENAZEPRIL HCL 10 MG TABLET PO SCH (08:29)
[2019-09-05] MEDS: DOCUSATE SODIUM 100 MG CAPSULE PO SCH ×2 (08:29→20:05)
[2019-09-05] MEDS: PredniSONE 20 MG TABLET PO SCH (08:29)
[2019-09-05] MEDS: AmLODIPine BESYLATE 5 MG TABLET PO SCH (08:29)
[2019-09-05] MEDS: DIVALPROEX SODIUM 500 MG DR TABLET PO SCH ×2 (08:29→20:05)
[2019-09-05 18:10] VITALS: BP 108/56
[2019-09-05] MEDS: OLANZapine 5 MG TABLET PO SCH (20:05)
[2019-09-06] VITALS: BP 126/53
[2019-09-06] MEDS: ALBUTEROL SULFATE 2.5 MG/0.5 ML NEB SOLUTION NEB SCH ×4 (02:00→20:29)
[2019-09-06 07:27] VITALS: BP 119/47
[2019-09-06] MEDS: AmLODIPine BESYLATE 5 MG TABLET PO SCH (09:51)
[2019-09-06] MEDS: MAGNESIUM OXIDE 400 MG TABLET PO SCH ×2 (09:51→20:16)
[2019-09-06] MEDS: FAMOTIDINE 20 MG TABLET PO SCH (09:51)
[2019-09-06] MEDS: BENZONATATE 100 MG CAPSULE PO SCH ×2 (09:52→16:40)
[2019-09-06] MEDS: ASPIRIN 81 MG EC TABLET PO SCH (09:52)
[2019-09-06] MEDS: FLUTICASONE/VILANTEROL 200-25 MCG/INH INHALER [14] IH SCH (09:52)
[2019-09-06] MEDS: DOCUSATE SODIUM 100 MG CAPSULE PO SCH ×2 (09:52→20:17)
[2019-09-06] MEDS: FUROSEMIDE 20 MG TABLET PO SCH (09:52)
[2019-09-06] MEDS: TIOTROPIUM BROMIDE 18 MCG/INH HANDIHALER [5] IH SCH (09:52)
[2019-09-06] MEDS: PredniSONE 20 MG TABLET PO SCH (09:52)
[2019-09-06] MEDS: BENAZEPRIL HCL 10 MG TABLET PO SCH (09:53)
[2019-09-06] MEDS: DIVALPROEX SODIUM 500 MG DR TABLET PO SCH ×2 (09:53→20:24)
[2019-09-06] MEDS: OXYGEN THERAPY IH SCH ×2 (09:55→20:17)
[2019-09-06] MEDS: IPRATROPIUM BROMIDE 0.5 MG/2.5 ML NEB SOLUTION NEB PRN ×2 (10:48→20:29)
[2019-09-06 16:00] VITALS: BP 106/63
[2019-09-06] MEDS: OLANZapine 5 MG TABLET PO SCH (20:16)
[2019-09-06] MEDS: MELATONIN 3 MG TABLET PO PRN (20:17)
[2019-09-07] VITALS: BP 110/58
[2019-09-07] MEDS: BENZONATATE 100 MG CAPSULE PO SCH ×4 (00:26→23:28)
[2019-09-07] MEDS: ALBUTEROL SULFATE 2.5 MG/0.5 ML NEB SOLUTION NEB SCH ×4 (01:57→21:08)
[2019-09-07 07:30] VITALS: BP 134/56
[2019-09-07] MEDS: PredniSONE 10 MG TABLET PO SCH (08:26)
[2019-09-07] MEDS: AmLODIPine BESYLATE 5 MG TABLET PO SCH (08:26)
[2019-09-07] MEDS: TIOTROPIUM BROMIDE 18 MCG/INH HANDIHALER [5] IH SCH (08:26)
[2019-09-07] MEDS: DOCUSATE SODIUM 100 MG CAPSULE PO SCH ×2 (08:26→20:31)
[2019-09-07] MEDS: OXYGEN THERAPY IH SCH ×2 (08:27→20:31)
[2019-09-07] MEDS: FLUTICASONE/VILANTEROL 200-25 MCG/INH INHALER [14] IH SCH (08:27)
[2019-09-07] MEDS: ASPIRIN 81 MG EC TABLET PO SCH (08:27)
[2019-09-07] MEDS: DIVALPROEX SODIUM 500 MG DR TABLET PO SCH ×2 (08:28→20:31)
[2019-09-07] MEDS: FUROSEMIDE 20 MG TABLET PO SCH (08:28)
[2019-09-07] MEDS: BENAZEPRIL HCL 10 MG TABLET PO SCH (08:28)
[2019-09-07] MEDS: FAMOTIDINE 20 MG TABLET PO SCH (08:29)
[2019-09-07] MEDS: MAGNESIUM OXIDE 400 MG TABLET PO SCH ×2 (08:29→20:31)
[2019-09-07] MEDS: IPRATROPIUM BROMIDE 0.5 MG/2.5 ML NEB SOLUTION NEB PRN ×3 (09:11→21:08)
[2019-09-07 20:12] VITALS: BP 125/53
[2019-09-07] MEDS: OLANZapine 5 MG TABLET PO SCH (20:32)
[2019-09-07 23:25] VITALS: BP 144/66
[2019-09-07] MEDS: MELATONIN 3 MG TABLET PO PRN (23:27)
[2019-09-08] MEDS: ALBUTEROL SULFATE 2.5 MG/0.5 ML NEB SOLUTION NEB SCH ×4 (02:00→20:38)
[2019-09-08 07:20] VITALS: BP 143/70
[2019-09-08] MEDS: DOCUSATE SODIUM 100 MG CAPSULE PO SCH ×2 (07:41→20:10)
[2019-09-08] MEDS: FAMOTIDINE 20 MG TABLET PO SCH (07:41)
[2019-09-08] MEDS: ASPIRIN 81 MG EC TABLET PO SCH (07:41)
[2019-09-08] MEDS: BENAZEPRIL HCL 10 MG TABLET PO SCH (07:42)
[2019-09-08] MEDS: BENZONATATE 100 MG CAPSULE PO SCH ×2 (07:42→17:31)
[2019-09-08] MEDS: FUROSEMIDE 20 MG TABLET PO SCH (07:42)
[2019-09-08] MEDS: PredniSONE 10 MG TABLET PO SCH (07:42)
[2019-09-08] MEDS: AmLODIPine BESYLATE 5 MG TABLET PO SCH (07:42)
[2019-09-08] MEDS: MAGNESIUM OXIDE 400 MG TABLET PO SCH ×2 (07:42→20:11)
[2019-09-08] MEDS: FLUTICASONE/VILANTEROL 200-25 MCG/INH INHALER [14] IH SCH (07:43)
[2019-09-08] MEDS: TIOTROPIUM BROMIDE 18 MCG/INH HANDIHALER [5] IH SCH (07:44)
[2019-09-08] MEDS: OXYGEN THERAPY IH SCH (07:44)
[2019-09-08] MEDS: DIVALPROEX SODIUM 500 MG DR TABLET PO SCH ×2 (07:44→20:11)
[2019-09-08] MEDS ORDERED: 0.9% SODIUM CHLORIDE 5 ML NEB SOLUTION NEB ONE ×2 (08:51→15:37)
[2019-09-08 15:20] VITALS: BP 126/51
[2019-09-08] MEDS: MELATONIN 3 MG TABLET PO PRN (20:10)
[2019-09-08] MEDS: OLANZapine 5 MG TABLET PO SCH (20:11)
[2019-09-08] MEDS: IPRATROPIUM BROMIDE 0.5 MG/2.5 ML NEB SOLUTION NEB PRN (20:38)
[2019-09-09] VITALS: BP 140/60
[2019-09-09] MEDS: ALBUTEROL SULFATE 2.5 MG/0.5 ML NEB SOLUTION NEB SCH ×4 (02:00→20:58)
[2019-09-09 08:00] VITALS: BP 149/62
[2019-09-09] MEDS: FAMOTIDINE 20 MG TABLET PO SCH (08:17)
[2019-09-09] MEDS: FLUTICASONE/VILANTEROL 200-25 MCG/INH INHALER [14] IH SCH (08:17)
[2019-09-09] MEDS: DOCUSATE SODIUM 100 MG CAPSULE PO SCH ×2 (08:17→19:03)
[2019-09-09] MEDS: FUROSEMIDE 20 MG TABLET PO SCH (08:17)
[2019-09-09] MEDS: AmLODIPine BESYLATE 5 MG TABLET PO SCH (08:17)
[2019-09-09] MEDS: BENAZEPRIL HCL 10 MG TABLET PO SCH (08:17)
[2019-09-09] MEDS: ASPIRIN 81 MG EC TABLET PO SCH (08:18)
[2019-09-09] MEDS: PredniSONE 10 MG TABLET PO SCH (08:18)
[2019-09-09] MEDS: MAGNESIUM OXIDE 400 MG TABLET PO SCH ×2 (08:18→19:02)
[2019-09-09] MEDS: DIVALPROEX SODIUM 500 MG DR TABLET PO SCH ×3 (08:18→19:05)
[2019-09-09] MEDS: BENZONATATE 100 MG CAPSULE PO SCH ×3 (08:18→16:17)
[2019-09-09] MEDS: IPRATROPIUM BROMIDE 0.5 MG/2.5 ML NEB SOLUTION NEB PRN ×3 (09:13→20:58)
[2019-09-09] MEDS: TIOTROPIUM BROMIDE 18 MCG/INH HANDIHALER [5] IH SCH (10:44)
[2019-09-09 16:00] VITALS: BP 99/51
[2019-09-09] MEDS: OLANZapine 5 MG TABLET PO SCH (19:03)
[2019-09-09 23:03] VITALS: BP 141/54
[2019-09-10] MEDS: ALBUTEROL SULFATE 2.5 MG/0.5 ML NEB SOLUTION NEB SCH ×2 (02:00→09:10)
[2019-09-10] MEDS ORDERED: FLUT1BLS IH (02:27)
[2019-09-10] MEDS ORDERED: DIVA-78 PO (02:27)
[2019-09-10] MEDS ORDERED: TIOT185 IH (02:28)
[2019-09-10] MEDS ORDERED: ACET-66 PO (02:35)
[2019-09-10] MEDS ORDERED: BENZ-51 PO (02:35)
[2019-09-10] MEDS ORDERED: ACET-784 PO (02:35)
[2019-09-10] MEDS ORDERED: AUD NEB (02:35)
[2019-09-10] MEDS ORDERED: DOCU-275 PO (02:35)
[2019-09-10 07:07] LABS: ANION GAP 2 mmol/L (8-16); CALCIUM, TOTAL 9.4 mg/dL (8.8-10.5); CARBON DIOXIDE 38 mmol/L (22-29); CHLORIDE 107 mmol/L (98-107); CREATININE 0.76 mg/dL (0.60-1.30); GLUCOSE,RANDOM 82 mg/dL (70-110); POTASSIUM 4.1 mmol/L (3.5-5.1); SODIUM SERUM 147 mmol/L (136-145); UREA NITROGEN, BLOOD 23 mg/dL (7-18)
[2019-09-10 07:09] LABS: GLOMERULAR FILTR. RATE CALC > 60 mL/min (>60)
[2019-09-10 07:12] VITALS: BP 128/68
[2019-09-10] MEDS: FAMOTIDINE 20 MG TABLET PO SCH (08:05)
[2019-09-10] MEDS: FLUTICASONE/VILANTEROL 200-25 MCG/INH INHALER [14] IH SCH (08:05)
[2019-09-10] MEDS: BENZONATATE 100 MG CAPSULE PO SCH ×2 (08:06)
[2019-09-10] MEDS: AmLODIPine BESYLATE 5 MG TABLET PO SCH (08:06)
[2019-09-10] MEDS: MAGNESIUM OXIDE 400 MG TABLET PO SCH (08:06)
[2019-09-10] MEDS: DOCUSATE SODIUM 100 MG CAPSULE PO SCH (08:06)
[2019-09-10] MEDS: BENAZEPRIL HCL 10 MG TABLET PO SCH (08:07)
[2019-09-10] MEDS: FUROSEMIDE 20 MG TABLET PO SCH (08:07)
[2019-09-10] MEDS: DIVALPROEX SODIUM 500 MG DR TABLET PO SCH (08:07)
[2019-09-10] MEDS: TIOTROPIUM BROMIDE 18 MCG/INH HANDIHALER [5] IH SCH (08:07)
[2019-09-10] MEDS: ASPIRIN 81 MG EC TABLET PO SCH (08:08)
== END 2019-09-10 13:50 | DRG 947 ==
LOC: 2WR 13:45
PROVIDERS: ADMIT Physical Medicine & Rehabilitation; ATTEND Physical Medicine & Rehabilitation
DX: R53.81 Other malaise (principal); J96.02 Acute respiratory failure with hypercapnia; J96.01 Acute respiratory failure with hypoxia; I13.0 Hypertensive heart and chronic kidney disease with heart failure and stage 1 through stage 4 chronic kidney disease, or unspecified chronic kidney disease; J44.1 Chronic obstructive pulmonary disease with (acute) exacerbation; N17.9 Acute kidney failure, unspecified; D63.8 Anemia in other chronic diseases classified elsewhere; E66.9 Obesity, unspecified; F17.210 Nicotine dependence, cigarettes, uncomplicated; F25.9 Schizoaffective disorder, unspecified; G40.909 Epilepsy, unspecified, not intractable, without status epilepticus; I50.9 Heart failure, unspecified; N18.9 Chronic kidney disease, unspecified; Z82.3 Family history of stroke; Z82.49 Family history of ischemic heart disease and other diseases of the circulatory system; Z90.710 Acquired absence of both cervix and uterus; Z68.38 Body mass index [BMI] 38.0-38.9, adult
CPT/HCPCS: 70450; 87081; 92507; 92526; 93005; 93970; 94640; 97110; 97116; 97163; 97166; 97530; 97535; 99366